=== PATIENT | male | born 1990 | race Caucasian/White ===

== ENCOUNTER → 2017-11-23 | Emergency (ER) | payer OTHER ==
[~2017-11-23] VITALS: Ht 175.3 cm; Wt 108.9 kg
== END | disposition home or self-care (01) ==
LOC: ER 12:35
DX: J45.998 Other asthma (principal)

== ENCOUNTER 2019-11-02 07:30 | Outpatient (CLI) | payer OTHER | END 2019-11-02 07:38 | disposition home or self-care (01) | LOC: TOM 07:30 | PROVIDERS: ATTEND General Practice | DX: J45.998 Other asthma (principal); Z71.3 Dietary counseling and surveillance ==

== ENCOUNTER 2019-11-29 10:28 | Outpatient (CLI) | payer OTHER | END 2019-11-29 10:41 | disposition home or self-care (01) | LOC: TOM 10:28 | PROVIDERS: ATTEND Specialist | DX: J44.9 Chronic obstructive pulmonary disease, unspecified (principal) ==